=== PATIENT | female | born 1935 | race Caucasian/White ===

== ENCOUNTER 2018-12-23 18:45 | Inpatient (IN) | payer SELFPAY ==
[~2018-12-23] VITALS: Ht 157.5 cm; Wt 64.0 kg
[2018-12-23 19:14] VITALS: Ht 157.5 cm; Wt 64.0 kg
[2018-12-23 20:54] LABS: BASOPHIL % 0.4 % (0-2); PLATELET COUNT 167 x10^3mcL (130-400); RED CELL DISTRIBUTION WIDTH 14.2 % (11.5-14.5)
[2018-12-23 21:17] LABS: ALKALINE PHOSPHATASE 65 U/L (46-116); ALT/SGPT 23 U/L (14-59); AST/SGOT 17 U/L (15-37); BILIRUBIN TOTAL 2.8 mg/dL (0.20-1.00); CALCIUM 8.1 mg/dL (8.5-10.1); CARBON DIOXIDE 27.3 mmol/L (21-32); CHLORIDE SERUM 103 mmol/L (98-107); GLUCOSE SERUM 128 mg/dL (74-106); SODIUM SERUM 140 mmol/L (136-145); TOTAL PROTEIN, SERUM 7.1 g/dL (6.4-8.2)
[2018-12-23 21:20] LABS: ALBUMIN 3.1 g/dL (3.4-5.0)
[2018-12-23 21:21] LABS: POTASSIUM SERUM 2.9 mmol/L (3.5-5.1)
[2018-12-23 22:20] LABS: microscopic required? NO
[2018-12-23 22:41] LABS: UA SPECIFIC GRAVITY <=1.005 (1.005-1.035); urine erythrocyte NEGATIVE (NEGATIVE)
[2018-12-23 23:05] LABS: T3 TOTAL 0.71 ng/mL
[2018-12-23 23:26] LABS: PHOSPHOROUS 2.2 mg/dL (2.5-4.9)
[2018-12-23 23:28] LABS: CHOLESTEROL/HDL RATIO 2.4
[2018-12-23 23:44] VITALS: BP 147/58
[2018-12-23 23:45] LABS: FREE T4 1.05 ng/dL (0.76-1.46); FREE THYROXINE INDEX 2.4 ug/dL (1.4-4.5); T4(THYROXINE) 6.5 ug/dL (4.7-13.3)
[2018-12-24 05:56] VITALS: BP 119/59
[2018-12-24 06:39] LABS: CALCIUM 7.9 mg/dL (8.5-10.1); CARBON DIOXIDE 24.8 mmol/L (21-32); CHLORIDE SERUM 109 mmol/L (98-107); CREATININE SERUM 0.8 mg/dL (0.6-1.0); GLUCOSE SERUM 170 mg/dL (74-106); MAGNESIUM 1.9 mg/dL (1.8-2.4); PHOSPHOROUS 2.5 mg/dL (2.5-4.9); POTASSIUM SERUM 4.5 mmol/L (3.5-5.1); SODIUM SERUM 139 mmol/L (136-145)
[2018-12-24 06:52] LABS: BASOPHIL % 0 % (0-2); PLATELET COUNT 168 x10^3mcL (130-400); RED CELL DISTRIBUTION WIDTH 13.9 % (11.5-14.5)
[2018-12-24 08:54] VITALS: BP 107/50
[2018-12-24] MEDS ORDERED: LEVAQUIN750 MG PO (11:03)
[2018-12-24 11:18] VITALS: BP 107/50
== END 2018-12-24 12:49 | disposition home or self-care (01) | DRG 194 ==
LOC: ED 18:45 → DU 22:24
PROVIDERS: Emergency Medicine; ADMIT Family Medicine
DX: J18.9 Pneumonia, unspecified organism (principal); E44.0 Moderate protein-calorie malnutrition; E87.6 Hypokalemia; J20.9 Acute bronchitis, unspecified; E83.39 Other disorders of phosphorus metabolism; R73.9 Hyperglycemia, unspecified; Z68.21 Body mass index [BMI] 21.0-21.9, adult
CPT/HCPCS: 83880; 84439; 87804; 94150; J0456; J0696; J3480; J7030; J7040; J7050; J7512; J7613; J7644; Q0092